=== PATIENT | female | born 1950 | race Caucasian/White ===

== ENCOUNTER 2017-05-27 06:27 | Inpatient (IN) ==
[2017-05-27] MEDS ORDERED: CeFAZolin Pre 2,000 MG/100 ML 2,000 MG/100 ML BAG IVPB ONE (06:45)
[2017-05-27] MEDS ORDERED: Albuterol 2.5 MG/3 ML NEBULIZER IH ONE (06:45)
[2017-05-27] MEDS ORDERED: Ringers Solution, Lactated 1,000 ML IVC SCH (06:45)
[2017-05-27] MEDS ORDERED: Vancomycin 750 MG in D5% in Water 250 ML IVPB ONE ×3 (06:45→19:00)
[2017-05-27] MEDS ORDERED: Vancomycin 1,000 MG VIAL ONE (07:09)
[2017-05-27] MEDS ORDERED: Heparin 1,000 UNITS/500 mL NS 1,000 ML ONE (07:09)
[2017-05-27] MEDS ORDERED: *HR* Rocuronium Bromide 50 MG/5 ML VIAL ONE (07:14)
[2017-05-27] MEDS ORDERED: Ondansetron 4 MG/2 ML VIAL ONE (07:14)
[2017-05-27] MEDS ORDERED: *HR* FentaNYL (PF) 100 MCG/2 ML VIAL ONE (07:14)
[2017-05-27] MEDS ORDERED: *HR* Midazolam HCl 2 MG/2 ML VIAL ONE (07:14)
[2017-05-27] MEDS ORDERED: Lidocaine -MPF 2% 2 ML VIAL ONE (07:14)
[2017-05-27] MEDS ORDERED: *HR* Propofol 200 MG/20 ML VIAL IVP ONE (07:14)
[2017-05-27] MEDS ORDERED: Lidocaine -MPF 4% 5 ML AMPUL ONE (07:15)
--- NOTE | 2017-05-27 07:31 | Anesthesia Evaluation PreOp ---
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: CVA (hx 3 strokes (resultant blindness - which resolved after around 6 months - still with poor vision, right foot weakness)) Other Medical History: Diabetes Type II (insulin dependent) Anesthesia History: No Prior Anesthetic Complications Alcohol Use: none Drug use: none Medications and Allergies Acitretin [Soriatane] 25 mg PO DAILY 05/29/15 [History] Albuterol Neb [Proventil Neb] 2.5 mg IH Q6H 05/29/15 [History] Citalopram [CeleXA] 30 mg PO DAILY 05/29/15 [History] Clopidogrel [Plavix] 75 mg PO DAILY 05/29/15 [History] Gabapentin [Neurontin] 600 mg PO TID 05/29/15 [History] Glimepiride [Amaryl] 4 mg PO DAILY 05/29/15 [History] HYDROcodone/Acet 5/325 mg [[place] 5-325 mg] 1 tab PO Q6HR PRN 05/29/15 [History] Insulin Glargine,Hum.rec.anlog [Lantus Solostar] 25 - 40 unit SQ HS 05/29/15 [ History] Insulin NPH Hum/Reg Insulin Hm [Novolin 70-30 100 Unit/ml Vial] 10 - 25 unit SQ BID 05/29/15 [History] Levothyroxine [Synthroid] 25 mcg PO DAILY 05/29/15 [History] Losartan [Cozaar] 25 mg PO BID 05/29/15 [History] Ranitidine Oral Soln [Ranitidine] 150 mg PO BID 05/29/15 [History] Simvastatin [Zocor] 40 mg PO HS 05/29/15 [History] Tiotropium [Spiriva] 18 mcg IH 0700 05/29/15 [History] Albuterol Sulfate [Proair Respiclick] 90 mcg IH Q4-6H PRN 10/04/15 [History] Potassium Chloride [Klor-Con Sprinkle] 10 meq PO BID 10/04/15 [History] Alendronate Sodium [Fosamax] 70 mg PO QWEEK 03/03/17 [History] Budesonide/Formoterol 80/4.5 [Symbicort 80/4.5] 2 puff IH BID 03/03/17 [History ] Ibuprofen [Motrin] 800 - 1,600 mg PO DAILY PRN 03/03/17 [History] LORazepam [Ativan] 0.5 mg PO BID 03/03/17 [History] Olopatadine HCl [Pataday] 2.5 ml OP DAILY 03/03/17 [History] Pnv with Ca,No.72/Iron,Carb/FA [ Plus Iron Tablet] 1 each PO 03/03/17 [ History] Allergies codeine Allergy (Verified 05/27/17 07:25) Drowsy diphtheria,pertussis (acell),tetanu [dip,pert(acell),tet,polio vacc] Allergy ( Verified 03/03/17 09:16) Nausea meperidine Allergy (Verified 05/27/17 07:25) Drowsy Penicillins [PCN] Allergy (Verified 05/27/17 07:25) See Comments patient states reaction many years ago and unsure of what reaction is - Meds/Allergy Pre-op Review Medications Reviewed: Yes Allergies Reviewed: Yes Beta Blockers on Current Med List: No Anesthesia Results - Labs Laboratory Tests 05/20/17 05/20/17 05/20/17 09:54 09:54 09:54 WBC 6.5 Hgb 12.6 Hct 36.6 Plt Count 248 PT 10.9 INR 1.0 APTT 31.3 Sodium 134 L Potassium 3.8 Chloride 100 Carbon Dioxide 25 BUN 8 Creatinine 0.89 Est GFR ( Amer) > 60 Est GFR (Non-Af Amer) > 60 BUN/Creatinine Ratio 9 Glucose 379 H Calculated Osmolality 292 Calcium 8.8 - Imaging EKG: report reviewed, image reviewed (SR; inferior CT probably old) Anesthesia Exam Last Vital Signs Temp 97.7 F 05/27/17 07:09 Pulse 73 05/27/17 07:09 Resp 18 05/27/17 07:09 BP 190/75 05/27/17 07:09 Pulse Ox 97 05/27/17 07:09 Weight: 44 kg NPO (# of Hours): >> 8 hrs - HEENT Pupil (Motor): Pupils equal, EOMI Mallampati: I Teeth: Edentulous Oral Opening: Greater than 3 - THROW OUT CLERK LOC: Oriented THROW OUT CLERK Motor: Normal RUE, Normal LUE, Normal RLE, Normal LLE, Normal Face - Cardiac Rhythm: Regular Murmur: None - Pulmonary Breath Sounds: bilateral Clear Respiratory Effort: Symmetrical Anesthesia Assess/Plan ASA Score: 4 (multiple CVA, CAD s/p CABG, poorly controlled DM 2, PVD, COPD) Modified Mayelin Scale for Level of Consciousness: Cooperative, oriented, and tranquil Anesthetic Plan: General Monitoring Plan: Standard Monitors, A-Line Recovery Plan: PACU
--- NOTE | 2017-05-27 07:34 | History & Physical Report ---
Date of Encounter: 05/27/17 Time of Encounter: 07:25 24 Hour HP Update - Instructions Instructions: If the History and Physical is less than 30 days old and was completed prior to A.M. admission and or procedure and has NOT been updated on calendar day of procedure please complete this update prior to performing procedure. - Update Patient reports changes in Medical Condition: No Changes in examination, assessment, or condition: No Changes in Medication: No Preop tests/diagnostics Reviewed: Yes Surgery Remains Indicated: Yes Consent for Planned Operative Procedure(s) Verified: Yes - Pre-Operative Checklist Preoperative Checklist Indicated: Yes Prophylactic Antibiotic Ordered: Yes (Vancomycin due to MRSA risk) Home Medications Include Beta Harpal: No Beta Harpal Taken Today (Day of Surgery): No Beta Harpal Taken Yesterday (Day Prior to Surgery): No Is VTE Prophylaxis Indicated?: Yes
[2017-05-27] MEDS ORDERED: Heparin 1,000 UNITS/500 mL NS 500 ML ONE (07:39)
[2017-05-27] MEDS ORDERED: *HR* Phenylephrine 10 MG/ML VIAL ONE (08:30)
[2017-05-27] MEDS ORDERED: Albumin Human 5% 25.0 GM/500 ML VIAL ONE (08:31)
[2017-05-27] MEDS ORDERED: *HR* HYDROmorphone (PF) 1 MG/ML SYRINGE IVP PRN (09:50)
[2017-05-27] MEDS ORDERED: Albuterol 2.5 MG/3 ML NEBULIZER IH PRN (09:50)
[2017-05-27] MEDS ORDERED: *HR* Midazolam HCl 2 MG/2 ML VIAL IVP PRN (09:50)
[2017-05-27] MEDS ORDERED: Ondansetron 4 MG/2 ML VIAL IVP PRN ×2 (09:50→12:24)
[2017-05-27] MEDS ORDERED: Neostigmine Methylsulfate 3 MG/3 ML SYRINGE ONE (10:26)
--- NOTE | 2017-05-27 10:44 | Operative Note ---
Date of procedure: 05/27/17 Pre-op diagnosis: Peripheral Vascular Disease with Disabling Claudication Post-op diagnosis: same Procedure: Left iliofemoral endarterectomy with bovine pericardial patch angioplasty. Complications: None Anesthesia: PAULAA Surgeon: Anand Isaac Estimated blood loss (cc): 100 Specimen: left iliofemoral plaque Condition: stable Disposition: PACU Procedure in Detail: Indicications: The patient is a 67 year old female with a history of peripheral vascular disease with disabling claudication. She has previously undergone bilateral femoral to popliteal artery bypass procedures. She presented with complaints of worsening claudication. Angiography revealed sever left external iliac and common femoral artery stenosis. Revascularization was recommended to alleviate her symptoms and reduce her risk of limb loss. Procedure: The patient was identified in the preoperative area. The risks, benefits, and alternatives of the procedure were discussed. All questions were answered. The patient was taken to the operating room and placed in supine position on the operating room table. After the induction of general endotracheal anesthesia, he was cleaned and draped in normal sterile fashion. An oblique incision was made through the scar over her left groin sharply. Hemostasis was obtained with electrocautery. Through a process of blunt, sharp , and electrocautery dissection, the left external iliac, common femoral, deep femoral and superficial femoral arteries were dissected circumferentially and surrounded with vessel loops. The proximal bypass graft was also dissected circumferentially and surrounded with a vessel loop. The patient received 5000 units of heparin intravenously. After waiting adequate time for the heparin to circulate, the vessels and graft were occluded. A firm stenotic plaque was noted in the external iliac artery and common femoral artery above her bypass graft. A longitudinal arteriotomy was made in the artery above the bypass graft anastamosis. The arteriotomy was extended distally into the graft anastamosis. Using a dental Wilmot, a standard endarterectomy was performed. Proximal and distal endpoints were inspected. No elevated flaps were noted. The wound was irrigated with heparinized saline and bovine patch was cut to fit the defect and sutured in place with running 6-0 Prolene. The free endos of the bypass anastmosis were incorporated into the new suture line. Prior to completing the patch anastomosis, each vessel was flushed individually, then reoccluded. Heparinized saline was infused into the lumen. The patch was completed and flow was restored. Thrombin and Gelfoam were used to aid in hemostasis. Meticulous hemostasis was obtained with electrocautery. Polyphasic signal was noted distal to the distal end of the patch as well as in the deep and superficial femoral arteries. The wound was irrigated with antibiotic-containing saline. Platelet-rich and platelet-poor plasma were infused into the wound. The wounds were reapproximated with layer of 2-0 Vicryl followed by three layers of 3-0 Vicryl and 3-0 Monocryl in the subcuticular layer. Sterile dressings were applied. The patient was extubated, taken to recovery room in stable condition.
[2017-05-27] MEDS ORDERED: Insulin Human Regular 5 UNIT in 0.9 % Sodium Chloride 10 ML IV ONE (10:57)
[2017-05-27] MEDS ORDERED: Acetaminophen IV 1,000 MG/100 ML INFUS..BTL IVPB ONE (11:19)
[2017-05-27] MEDS ORDERED: Acetaminophen IV 1,000 MG/100 ML INFUS..BTL ONE (11:24)
[2017-05-27] MEDS ORDERED: *HR* Promethazine 25 MG/ML VIAL ONE (11:25)
[2017-05-27] MEDS: *HR* Promethazine 25 MG/ML VIAL IVP PRN ×2 (11:30→11:39)
[2017-05-27] MEDS ORDERED: Dextrose Gel 15 GM PO PRN ×2 (12:24)
[2017-05-27] MEDS ORDERED: *HR* Dextrose 50 % in Water (Syg) 50 ML SYRINGE IVP PRN (12:24)
[2017-05-27] MEDS ORDERED: Ibuprofen 400 MG TABLET PO PRN (12:24)
[2017-05-27] MEDS ORDERED: *HR* Morphine 2 MG/ML SYRINGE IVP PRN (12:24)
[2017-05-27] MEDS ORDERED: D5% in Water 1,000 ML IVC PRN (12:24)
[2017-05-27] MEDS ORDERED: Acetaminophen 325 MG TABLET PO PRN (12:24)
[2017-05-27] MEDS ORDERED: *HR* Labetalol 20 MG/4 ML SYRINGE IVP PRN (12:24)
[2017-05-27] MEDS ORDERED: Naloxone 0.4 MG/ML INJ IVP PRN (12:24)
[2017-05-27] MEDS: *HR* Metoprolol 5 MG/5 ML VIAL IVP SCH ×2 (14:14→17:47)
[2017-05-27] MEDS: ceFAZolin 2,000 MG in D5% in Water 100 ML IVPB SCH (14:14)
[2017-05-27] MEDS: Gabapentin 300 MG CAPSULE PO SCH ×2 (14:16→20:01)
[2017-05-27] MEDS: *HR* HYDROcodone/Acet 5/325 mg TABLET PO PRN (17:47)
[2017-05-27] MEDS: Insulin LISPRO 300 UNITS/3 ML VIAL SQ SCH (17:48)
[2017-05-27] MEDS ORDERED: *HR* Heparin 5,000 UNIT/ML VIAL SQ SCH (18:00)
[2017-05-27] MEDS ORDERED: Insulin LISPRO 300 UNITS/3 ML VIAL SQ SCH (21:00)
[2017-05-27] MEDS: Budesonide/Formoterol 80/4.5 MDI IH SCH (21:14)
[2017-05-28] MEDS: ceFAZolin 2,000 MG in D5% in Water 100 ML IVPB SCH (00:12)
[2017-05-28] MEDS: *HR* Metoprolol 5 MG/5 ML VIAL IVP SCH ×3 (00:13→11:49)
[2017-05-28] MEDS ORDERED: *HR* Heparin 5,000 UNIT/ML VIAL SQ SCH (06:00)
[2017-05-28 06:24] LABS: Basophils % 0.3 %; Eosinophils % 0.3 %; Hematocrit 32.7 % (35.3-44.9); Hemoglobin 10.4 g/dL (11.5-15.4); Immature Granulocytes % 0.4 % (0-4); Lymphocytes # 1.4 K/mcL (0.6-4.6); Lymphocytes % 15.3 %; Mean Corpuscular HGB Conc 31.8 g/dL (31.6-35.5); Mean Corpuscular Hemoglobin 27.8 pg (28.0-33.3); Mean Corpuscular Volume 87.4 fL (83.0-100.0); Mean Platelet Volume 10.3 fL (9.4-12.4); Monocytes # 0.8 K/mcL (0.0-1.3); Monocytes % 8.6 %; Neutrophils # 6.9 K/mcL (1.6-8.9); Platelet Count 269 K/mcL (140-400); Red Blood Count 3.74 M/mcL (3.82-4.97); Segmented Neutrophils % 75.1 %
[2017-05-28 06:43] LABS: BUN/Creatinine Ratio 9 (6-26); Blood Urea Nitrogen 10 mg/dL (7-20); Calcium 8.7 mg/dL (8.6-10.8); Carbon Dioxide 27 mEq/L (19-29); Chloride 96 mEq/L (98-109); Glucose 316 mg/dL (70-99); Osmolality,Calculated 281 (280-300); Potassium 3.8 mEq/L (3.5-4.5); Sodium 130 mEq/L (136-145); eGFR For African Americans > 60 (> 60); eGFR For Non-African Americans 50 (> 60)
[2017-05-28] MEDS ORDERED: Tiotropium 18 MCG inhalation IH SCH (07:00)
--- NOTE | 2017-05-28 07:28 | Discharge Summary ---
Date of Encounter: 05/28/17 Time of Encounter: 07:45 - Discharge Diagnosis (1) Atherosclerosis of [place] arteries of extremity with rest pain Priority: Primary Status: Chronic Comments: The patient is postoperative day #1 after left lower extremity endarterectomy. She is feeling well. Her wound is healing. She reports that he leg feels better. She is healing well. She will be discharged today. Qualifiers: Peripheral atherosclerosis location: lower extremity Laterality: bilateral Qualified Code(s): I70.223 - Atherosclerosis of [place] arteries of extremities with rest pain, bilateral legs (2) Mixed hyperlipidemia Priority: Secondary Status: Chronic Comments: She was counseled regarding atherosclerotic risk factor reduction. (3) Chronic obstructive pulmonary disease, unspecified Priority: Secondary Status: Chronic Qualifiers: COPD type: emphysema Emphysema type: panlobular Qualified Code(s): J43.1 - Panlobular emphysema (4) Essential (primary) hypertension Priority: Secondary Status: Chronic (5) Type 2 diabetes mellitus with diabetic peripheral angiopathy without gangrene Priority: Secondary Status: Chronic Qualifiers: Diabetes mellitus fdc insulin use: unspecified fdc insulin use status Qualified Code(s): E11.51 - Type 2 diabetes mellitus with diabetic peripheral angiopathy without gangrene (6) Acute blood loss anemia Priority: Secondary Status: Acute Comments: The patient has acute expected postoperative blood loss anemia. She is hemodynamically stable without evidence of ongoing blood loss. - Discharge Medications Prescriptions: HYDROcodone/Acet 5/325 mg [[place] 5-325 mg] 1 tab PO Q6HR PRN #20 tab PRN Reason: POSTOPERATIVE PAIN Home Medications: Citalopram [CeleXA] 30 mg PO DAILY 05/29/15 [History] Clopidogrel [Plavix] 75 mg PO DAILY 05/29/15 [History] Gabapentin [Neurontin] 600 mg PO TID 05/29/15 [History] Insulin Glargine,Hum.rec.anlog [Lantus Solostar] 25 - 40 unit SQ HS 05/29/15 [ History] Insulin NPH Hum/Reg Insulin Hm [Novolin 70-30 100 Unit/ml Vial] 10 - 25 unit SQ BID 05/29/15 [History] Levothyroxine [Synthroid] 25 mcg PO DAILY 05/29/15 [History] Ranitidine Oral Soln [Ranitidine] 150 mg PO BID 05/29/15 [History] Tiotropium [Spiriva] 18 mcg IH 0700 05/29/15 [History] Alendronate Sodium [Fosamax] 70 mg PO FR 03/03/17 [History] Budesonide/Formoterol 80/4.5 [Symbicort 80/4.5] 2 puff IH BID 03/03/17 [History ] Ibuprofen [Motrin] 800 mg PO BID PRN 03/03/17 [History] Atorvastatin Calcium [Lipitor] 80 mg PO HS 05/27/17 [History] Losartan/HCTZ [Hyzaar 50-12.5 Tablet] 1 each PO DAILY 05/27/17 [History] HYDROcodone/Acet 5/325 mg [[place] 5-325 mg] 1 tab PO Q6HR PRN #20 tab 05/28/17 [ Rx] Allergies/Adverse Reactions: Allergies codeine Allergy (Verified 05/27/17 07:25) Drowsy diphtheria,pertussis (acell),tetanu [dip,pert(acell),tet,polio vacc] Allergy ( Verified 03/03/17 09:16) Nausea meperidine Allergy (Verified 05/27/17 07:25) Drowsy Penicillins [PCN] Allergy (Verified 05/27/17 07:25) See Comments patient states reaction many years ago and unsure of what reaction is Date of admission: 05/27/17 11:49 Primary care physician: Michele Garcia CNP Consults: 05/27/17 14:07 Consult to Pastoral Services [CONS] Routine Comment: Consult to Trench Digger [CONS] Routine Reason for SW Consult: [facility] Procedure(s) Performed: Left iliofemoral endarterectomy Discharging clinician: Anand Isaac Anticipated date of discharge: 05/28/17 - Patient Status Disposition: Home, Self-Care Condition: Good Functional capacity at discharge: independent ambulation Overall status at discharge: patient is back to baseline - Discharge Instructions Instructions: Hydrocodone/Acetaminophen (By mouth), Peripheral Vascular Disorders (DC), Chronic Obstructive Pulmonary Disease (DC), Meal Planning with Diabetes Exchanges (DC) Follow Up With: Anand Isaac MD [Partnered Physician] - 07/12/17 1:00 pm Michele Garcia CNP [Primary Care Provider] - 06/02/17 2:00 pm Additional Instructions: May remove bandage and shower on 05/29/17. Wash wound gently and pat to dry. Apply dry gauze to incision daily for 7 days. No tub baths or swimming until 06/25/17. Call Dr. Isaac at [phone] with questions or concerns. - Diet and Activity Activity: increase activity as tolerated Diet: advance to your usual diet - Hospital Course Hospital course: Ms. Aguilar is a 67 year old female - Time Spent with Patient Total time spent providing and/or coordinating discharge services: Exam Vital Signs, Last 4 Hours Temp Pulse Resp BP Pulse Ox 05/28/17 06:51 98.8 F 62 16 112/48 95 05/28/17 04:00 99.1 F 71 16 111/44 93 General: Present: Conversant, No Apparent Distress HEENT: Present: Pupils equal Cardiac: Present: Reg Rate and Rhythm Lungs: Present: Normal Breath Sounds Neuro: Present: Alert and responsive, No focal deficits noted Abdomen: Present: Non-tender. Absent: Masses Vascular: Present: Normal capillary refill, Surgical incisions (incision clean, dry and intact without erythema or drainage). Absent: Cyanosis, Edema - VTE Documentation of Mechanical Device: Intermittent pneumatic compression device
[2017-05-28] MEDS: Insulin LISPRO 300 UNITS/3 ML VIAL SQ SCH ×2 (08:24→11:52)
[2017-05-28] MEDS: Gabapentin 300 MG CAPSULE PO SCH (08:24)
[2017-05-28] MEDS: *HR* HYDROcodone/Acet 5/325 mg TABLET PO PRN (08:28)
[2017-05-28] MEDS ORDERED: Losartan/HCTZ 50-12.5 TABLET PO SCH (09:00)
[2017-05-28] MEDS ORDERED: Levothyroxine 25 MCG TABLET PO SCH (09:00)
[2017-05-28] MEDS: Budesonide/Formoterol 80/4.5 MDI IH SCH (10:31)
[2017-05-28 11:00] VITALS: BP 96/44
[2017-05-28] MEDS ORDERED: NON-FORMULARY MEDICATION 1 EACH EACH (Alendronate Sodium [Fosamax] 70 MG) PO SCH (11:50)
== END 2017-05-28 16:10 | disposition home or self-care (01) | DRG 253 ==
LOC: SAMDAY 06:27 → 2NNU 11:49
PROVIDERS: ADMIT Surgery; ATTEND Surgery